=== PATIENT | male | born 1945 ===

== ENCOUNTER 2018-01-16 09:41 | Emergency (ER) | payer OTHER ==
[~2018-01-16] VITALS: Ht 165.1 cm; Wt 64.4 kg
[2018-01-16] MEDS ORDERED: TRICOR48 MG (09:59)
[2018-01-16] MEDS ORDERED: VIT B (10:00)
[2018-01-16] MEDS ORDERED: LOSARTAN POTASS50 MG (10:00)
[2018-01-16] MEDS ORDERED: CRESTOR40 MG PO (10:00)
[2018-01-16] MEDS ORDERED: TAMS0.4C (10:00)
[2018-01-16] MEDS ORDERED: VIT D (10:00)
[2018-01-16] MEDS ORDERED: CELECOXIB100 MG PO (11:58)
== END 2018-01-16 13:01 | disposition home or self-care (01) ==
LOC: ER 09:41
DX: S90.121A Contusion of right lesser toe(s) without damage to nail, initial encounter (principal); W20.8XXA Other cause of strike by thrown, projected or falling object, initial encounter; Y93.89 Activity, other specified; Y92.89 Other specified places as the place of occurrence of the external cause; Y99.8 Other external cause status